=== PATIENT | female | born 1955 ===

== ENCOUNTER 2017-11-01 22:58 | Emergency (ER) | payer OTHER ==
[2017-11-01 22:58] VITALS: BMI 33.0
--- NOTE | 2017-11-02 02:45 | C.PDOC ---
History Of Present Illness 62 y/o female presents to the ER complaining of back pain, onset today. No direct injury or trauma. States she accidentally kicked something, and then felt pain to lower back. Patient is able to ambulate. No focal weakness, tingling, or numbness. Pain worsens with movement. Time Seen by Provider: 11/02/17 02:13 Chief Complaint (Nursing): Lower Extremity Problem/Injury History Per: Patient History/Exam Limitations: no limitations Onset/Duration Of Symptoms: Days (x1) Current Symptoms Are (Timing): Still Present Past Medical History Reviewed: Historical Data, Nursing Documentation, Vital Signs Vital Signs: Last Vital Signs Temp 97.4 F L 11/02/17 00:13 Pulse 60 11/02/17 00:13 Resp 20 11/02/17 00:13 BP 119/61 11/02/17 00:13 Pulse Ox 100 11/02/17 05:31 - Medical History PMH: Anemia (Acute Anemia), Fractures (S/P injury at work with right proximal femur fracture-right hip revision), HTN, Osteoporosis Denies: Arthritis, CHF, COPD, HIV, Hypercholesterolemia, Hypothyroidism, Chronic Kidney Disease, Rheumatoid Arthritis Surgical History: Cholecystectomy - [facility] Procedures OCCUPATIONAL THERAPY (02/20/15) OPEN REDUC-INT FIX FEMUR (02/09/14) PACKED CELL TRANSFUSION (02/09/14) PHYSICAL THERAPY NEC (02/20/15) RECREATIONAL THERAPY (02/20/15) Family History: States: No Known Family Hx - Social History Hx Tobacco Use: No Hx Alcohol Use: No Hx Substance Use: No - Immunization History Hx Tetanus Toxoid Vaccination: No Hx Influenza Vaccination: No Hx Pneumococcal Vaccination: No Review Of Systems Except As Marked, All Systems Reviewed And Found Negative. Musculoskeletal: Positive for: Back Pain. Negative for: Leg Pain Neurological: Negative for: Weakness, Numbness, Other (tingling) Physical Exam - Physical Exam Appears: Non-toxic, No Acute Distress Skin: Normal Color, Warm, Dry Head: Atraumatic, Normacephalic Eye(s): bilateral: Normal Inspection, PERRL, EOMI Oral Mucosa: Moist Neck: Normal ROM, Supple Chest: Symmetrical Cardiovascular: Rhythm Regular Respiratory: Normal Breath Sounds, No Accessory Muscle Use Back: No Vertebral Tenderness, Paraspinal Tenderness (to lumbar region), No Other (deformity) Extremity: Normal ROM, No Tenderness, No Deformity Neurological/Psych: Oriented x3, Normal Speech ED Course And Treatment O2 Sat by Pulse Oximetry: 100 (RA) Pulse Ox Interpretation: Normal - CT Scan/US CT lumbar spine Other Rad Studies (CT/US): Read By Radiologist, Radiology Report Reviewed CT/US Interpretation: FINDINGS: Right femoral telma, plate, and screws are noted. Cholecystectomy clips are present. Small amount of haziness in the presacral fat of uncertain etiology. Evidence of surgery in the sigmoid colon. Identification of a normal appendix. The uterus appears to have been surgically removed. There are degenerative changes in the osseous structures. There is joint space narrowing and endplate irregularity at L2-3 and L4-5. There is approximately 5 mm anterior spondylolisthesis of L4 with respect to L5. The vertebral body height is well maintained. No fractures. IMPRESSION: No acute findings. Medical Decision Making Medical Decision Making: Pt given trial of Flexeril and Toradol. Ordered UA and CT of lumbar spine CT findings discussed with patient, all questions answered. Disposition Counseled Patient/Family Regarding: Diagnosis - Disposition Referrals: [facility] at [facility] [Outside] Disposition: HOME/ ROUTINE Disposition Time: 06:23 Condition: STABLE Prescriptions: Cyclobenzaprine [Cyclobenzaprine HCl] 10 mg PO TID #20 tab Naproxen 375 mg PO TIDPC #20 tablet Instructions: Back Pain (ED) Forms: [facility] (Bengali) - POA Present On Arrival: None - Clinical Impression Clinical Impression: Back ache, Lumbosacral disc disease - Scribe Statement The provider has reviewed the documentation as recorded by the Alcira Tong Provider Attestation: All medical record entries made by the Alcira were at my direction and personally dictated by me. I have reviewed the chart and agree that the record accurately reflects my personal performance of the history, physical exam, medical decision making, and the department course for this patient. I have also personally directed, reviewed, and agree with the discharge instructions and disposition.
[2017-11-02 02:48] LABS: SQUAMOUS EPITHIAL 21 /hpf (0-5); URINE BILIRUBIN NEGATIVE (NEGATIVE); URINE BLOOD NEGATIVE (NEGATIVE); URINE CALCIUM OXALATE CRYSTALS OCC /hpf (<OCC); URINE CLARITY Hazy (Clear); URINE COLOR Amber (YELLOW); URINE GLUCOSE (UA) NORMAL (Normal); URINE LEUKOCYTE ESTERASE 1+ Leu/uL (Negative); URINE NITRATE NEGATIVE (NEGATIVE); URINE PROTEIN 1+ mg/dL (NEGATIVE)
--- NOTE | 2017-11-02 05:21 | CT ---
EXAM: CT Lumbar Spine Without Intravenous Contrast EXAM DATE/TIME: 11/02/2017 2:16 AM CLINICAL HISTORY: 62 years old, female; Pain; Low back pain TECHNIQUE: Axial computed tomography images of the lumbar spine without intravenous contrast. All CT scans at this facility use one or more dose reduction techniques, viz.: automated exposure control; ma/kV adjustment per patient size (including targeted exams where dose is matched to indication; i.e. head); or iterative reconstruction technique. Coronal and sagittal reformatted images were created and reviewed. COMPARISON: No relevant prior studies available. FINDINGS: Right femoral telma, plate, and screws are noted. Cholecystectomy clips are present. Small amount of haziness in the presacral fat of uncertain etiology. Evidence of surgery in the sigmoid colon. Identification of a normal appendix. The uterus appears to have been surgically removed. There are degenerative changes in the osseous structures. There is joint space narrowing and endplate irregularity at L2-3 and L4-5. There is approximately 5 mm anterior spondylolisthesis of L4 with respect to L5. The vertebral body height is well maintained. No fractures. IMPRESSION: No acute findings.
[2017-11-02 06:23] VITALS: BP 130/76; PULSE 78; RESP 18; TEMP 98
[2017-11-02 06:24] VITALS: O2SAT 100
== END 2017-11-02 06:32 | disposition home or self-care (01) ==
LOC: C.ER 22:58
DX: M51.9 Unspecified thoracic, thoracolumbar and lumbosacral intervertebral disc disorder (principal); M54.9 Dorsalgia, unspecified; I10 Essential (primary) hypertension; M81.0 Age-related osteoporosis without current pathological fracture
CPT/HCPCS: 72131; 81001; 87086; 96372; 99284; J1885